=== PATIENT | female | born 1945 | race Caucasian/White ===

== ENCOUNTER → 2024-06-17 13:09 | Outpatient (BNVA) | payer MEDICARE, OTHER, SELFPAY | PROVIDERS: PCP Family Medicine; Referring Provider Family Medicine; Visit Provider Student in an Organized Health Care Education/Training Program | DX: M17.11 Unilateral primary osteoarthritis, right knee (principal); M17.12 Unilateral primary osteoarthritis, left knee | CPT/HCPCS: 99203 ==

== ENCOUNTER 2024-09-03 00:22 | Outpatient (CLI) | payer MEDICARE, OTHER, SELFPAY ==
[2024-09-03 11:51] LABS: HCT 45.8 % (36.0-46.0); HGB 15.2 g/dL (11.2-15.7); MCH 29.6 pg (27.0-33.0); MCHC 33.2 % (32.0-36.0); MCV 89 fL (80-95); MPV 10.3 fL (8.0-11.0); Platelet Count 315 10^3/uL (130-400); RBC 5.14 10^6/uL (3.93-5.22); RDW 12.2 % (11.7-14.6); WBC 9.52 10^3/uL (4.4-10.8)
[2024-09-03 12:27] LABS: Anion Gap 9.9 mmol/L (3-11); BUN 16 mg/dL (7-18); CO2 28.1 mmol/L (21.0-32.0); CREATININE 0.8 mg/dL (0.55-1.02); Calcium 9.4 mg/dL (8.5-10.1); Chloride 104 mmol/L (98-107); Estimated GFR 75.37 (mL/min/1.73m2); Glucose 116 mg/dL (74-106); Potassium 3.9 mmol/L (3.5-5.1); Sodium 142 mmol/L (136-145)
== END 2024-09-03 00:23 | disposition home or self-care (01) ==
LOC: LBO 00:23
PROVIDERS: PCP Family Medicine; Visit Provider Student in an Organized Health Care Education/Training Program
DX: M17.11 Unilateral primary osteoarthritis, right knee (principal); Z01.818 Encounter for other preprocedural examination
CPT/HCPCS: 36415; 80048; 85027

== ENCOUNTER 2024-09-03 12:28 | Outpatient (CLI) | payer MEDICARE, OTHER, SELFPAY ==
--- NOTE | 2024-09-03 10:36 | DI.RAD_ITS ---
Exam(s) XR STANDING ALIGNMENT XR KNEE RT 1V EXAM: XR STANDING ALIGNMENT CLINICAL HISTORY: PRE OP R TKA. TECHNIQUE: 2D digital imaging was performed. Standing AP views were performed from the pelvis throu gh the ankles. COMPARISON: CR XR KNEE 3V BILAT-M2 from 04/09/2024 CR XR KNEE RT 1V from 09/03/2024 FINDINGS: BONES: No acute fracture is present. No bony destructive lesion is seen. Leg length discrepancy: No significant overall leg length discrepancy. JOINTS: Knees: Severe degenerative changes of the medial femoral tibial joint spaces of both knees. The ankle joints are unremarkable. The hip joints are maintained. There is bilateral acetabular spurring. SOFT TISSUE: Normal. IMPRESSION: Severe degenerative changes of both knees.. No significant leg length discrepancy. DATA REPOSITORY: RADIATION DOSE DELIVERED:
== END 2024-09-03 12:29 | disposition home or self-care (01) ==
LOC: DIORS 12:28
PROVIDERS: PCP Family Medicine; Visit Provider Physician Assistant
DX: M17.11 Unilateral primary osteoarthritis, right knee (principal); Z01.818 Encounter for other preprocedural examination
CPT/HCPCS: 36415; 80048; 85027; 99214; 73560; 77073

== ENCOUNTER 2024-09-14 08:25 | Day surgery (SDC) | payer MEDICARE, OTHER, SELFPAY ==
[2024-09-14] VITALS (23 sets, daily range): BP systolic 102–181; BP diastolic 57–93; PULSE 67–86; RESP 12–22; TEMP 36.2–36.5; O2SAT 97–100; BMI 36.8
--- NOTE | 2024-09-14 07:29 | W.PM.DSUDISC ---
Date of service: 09/14/24 Discharge Plan Disposition Patient Disposition: Home Condition: Good Discharge Details Reason For Visit: Right knee DJD Attending Provider: Dom Toribio Primary Care Provider: Shmuel Dixon Home Meds and New Rx's Prescriptions: New celecoxib [Celebrex] 200 mg capsule 200 mg PO BID PRNQty: 60 0RF Rx Instructions: Take one tablet twice daily for pain and inflammation aspirin 81 mg tablet,delayed release (DR/EC) 81 mg PO BID 30 Days Qty: 60 0RF acetaminophen 500 mg tablet 1,000 mg PO Q8H PRN Qty: 90 0RF Rx Instructions: Take two tablets up to every 8 hours as needed for pain dexamethasone 4 mg tablet 4 mg PO DAILY Qty: 2 0RF Rx Instructions: Take one tablet once daily for two days docusate sodium [Colace] 100 mg capsule 100 mg PO BID Qty: 30 0RF gabapentin 300 mg capsule 300 mg PO QHS Qty: 14 0RF Rx Instructions: Take one tablet at bedtime oxycodone 5 mg tablet 5 mg PO Q4H PRNQty: 18 0RF Rx Instructions: Take one tablet up to every 4 hours as needed for severe postoperative pain Continued multivitamin Tablet 1 tab PO DAILY omega-3 fatty acids 1,000 mg capsule 1,000 mg PO DAILY pantoprazole 40 mg tablet,delayed release (DR/EC) 40 mg PO DAILY calcium-magnesium 300-300 mg tablet 1 tab PO DAILY Rx Instructions: administer with a meal cholecalciferol (vitamin D3) 125 mcg (5,000 unit) capsule 125 mcg PO DAILY Discharge Instructions Additional Instructions: Total Knee Discharge Instructions Activity: The most important activity is to walk and to work on gentle motion (both flexion and extension). You should try to take short walks a few times a day. It is important that when resting you work on keeping the knee straight. Avoid putting a pillow behind the knee as this will encourage flexion. Work on range of motion exercises as provided by Physical Therapy. - Start outpatient physical therapy within 2 weeks. - You should wear the HARIKA hose on both legs for 2 weeks. You may remove these at night. You may also use any compression sock in place of the HARIKA hose. - Utilize [employer] to review exercises, see videos on exercises and obtain basic information pertaining to your surgery and your recovery. Dressing: Remove the Fred wrap by 2 days after your surgery and put on the HARIKA stocking given to you from the hospital. Keep the surgical dressing (underneath the FRED wrap) in place for at least one week. After the first week it may be removed and replaced with light gauze and tape or nothing. The wound and dressing may get wet after 3 days but avoid soaking the dressing or otherwise it will need to be changed. Many people prefer covering the dressing with cling wrap (saran wrap) to minimize it from getting soaked. If it gets wet, just pat dry. If it starts to peel off then it will need to be changed. Medications: - You should take Tylenol and anti-inflammatory Celebrex as your primary pain control medications. If the Celebrex is too expensive or not covered, please call the office for another alternative (Advil/Ibuprofen or Naproxen/Aleve) - You have been prescribed a stronger pain medication Oxycodone for breakthrough pain, take as needed as prescribed. - You take a stomach acid reduction agent Pantoprozole at baseline - continue with this medication to help reduce stomach acid and reflux. - You have been prescribed Gabapentin to take at night for restlessness and nerve pain. - You will be taking Aspirin 81mg twice a day for DVT prevention unless instructed otherwise. - You have also been prescribed Decadron to take to control post-operative nausea and pain. You will start this tomorrow. - If you have constipation you should take Colace (which has been prescribed) or Miralax (which is available [id number]). It takes most people 3-4 days to have a bowel movement. Follow-up: 2 weeks If you have any acute concerns or questions, please do not hesitate to contact the office at [phone]. You may contact Dr. Toribio with any questions after hours through the hospital at [phone] or on his cell phone at [phone]. Referrals: Dom Toribio MD [ [facility] STAFF PHYSICIAN] - Equipment/Supplies: Walker Activity:: Elevate Remove Dressings/Wound Care:: Do Not Remove Shower/Bathe:: Cover Diet:: As Tolerated Discharge Orders Discharge Orders: Discharge Order (Routine); Ordered 09/14/24 Ordered By: Annetta Hernandez
--- NOTE | 2024-09-14 08:00 | W.ANESPRE ---
General Info Date of Service Date Performed: 09/14/24 Height: 4 ft 10 in Weight: 79.832 kg Body Mass Index (BMI): 36.8 Surgical Procedure: Operation Date: 09/14/24 10:10 Proposed Procedure Side Surgeon p Knee Total Arthroplasty Right Dom Toribio MD Meds Allergies and Home Medications Allergies Allergy/AdvReac Type Severity Reaction Status Date / Time No Known Allergies Allergy Verified 09/14/24 08:58 Home Medication ?Medication ?Instructions ?Recorded multivitamin 1 tab PO DAILY 04/14/24 omega-3 fatty acids 1,000 mg 1,000 mg PO DAILY 04/14/24 capsule calcium-magnesium 300 mg-300 mg 1 tab PO DAILY 09/03/24 tablet cholecalciferol (vitamin D3) 125 125 mcg PO DAILY 09/03/24 mcg (5,000 unit) capsule pantoprazole 40 mg tablet,delayed 40 mg PO DAILY 09/03/24 release acetaminophen 500 mg tablet 1,000 mg (2 x 500 mg) PO Q8H PRN 09/14/24 pain #90 tabs aspirin 81 mg tablet,delayed 81 mg PO BID 30 days #60 tabs 09/14/24 release celecoxib 200 mg capsule (Celebrex) 200 mg PO BID PRN #60 caps 09/14/24 dexamethasone 4 mg tablet 4 mg PO DAILY #2 tabs 09/14/24 docusate sodium 100 mg capsule 100 mg PO BID #30 caps 09/14/24 (Colace) gabapentin 300 mg capsule 300 mg PO QHS #14 caps 09/14/24 oxycodone 5 mg tablet 5 mg PO Q4H PRN #18 tabs 09/14/24 Current Visit Medications: Current Medications Generic Name Dose Route Start Last Admin Trade Name Freq PRN Reason Stop Dose Admin Acetaminophen 1,000 mg 09/14/24 06:00 Acetaminophen 500 Mg Tab PO 09/14/24 23:59 PREOP CLEMENTINA Acetaminophen 1,000 mg 09/14/24 08:30 Acetaminophen 500 Mg Tab PO 10/14/24 08:29 TID CLEMENTINA Celecoxib 400 mg 09/14/24 06:00 Celecoxib 200 Mg Cap PO 09/14/24 23:59 PREOP CLEMENTINA Gabapentin 300 mg 09/14/24 06:00 Gabapentin 300 Mg Cap PO 09/14/24 23:59 PREOP CLEMENTINA Hydromorphone HCl 0.5 mg 09/14/24 07:27 Hydromorphone 2 Mg/Ml Syr IVP 10/14/24 07:26 Q2H PRN PRN Ringer's Solution 1,000 mls @ 80 mls/hr 09/14/24 06:00 IV 09/14/24 23:59 INFUSION CLEMENTINA Cefazolin Sodium/Dextrose 2 gm in 50 mls @ 100 mls/hr 09/14/24 06:00 Ancef Duplex IVPB 09/14/24 23:59 PREOP CLEMENTINA Tranexamic Acid/Sodium Chloride 1,000 mg in 100 mls @ 600 mls/hr 09/14/24 06:00 IVPB 09/14/24 23:59 DIRECTED CLEMENTINA IV Miscellaneous Supplies 1 each 09/14/24 06:00 Iv Access IV 09/14/24 23:59 DIRECTED CLEMENTINA Oxycodone HCl 0 mg 09/14/24 07:27 Oxycodone 5 Mg Tab PO 10/14/24 07:26 Q3H PRN PRN Pain Sodium Chloride 0 ml 09/14/24 06:00 Normal Saline Flush 10 Ml Syr IV 09/14/24 23:59 PRN PRN Sodium Chloride 0 ml 09/14/24 06:00 Normal Saline 10 Ml Vial IJ 09/14/24 23:59 DIRECTED PRN Sterile Water 0 ml 09/14/24 06:00 Water,Injection,Sterile 10 Ml Vial IJ 09/14/24 23:59 DIRECTED PRN Tranexamic Acid 1,300 mg 09/14/24 07:27 Tranexamic Acid 650 Mg Tab PO 10/14/24 07:26 ONCE PRN postoperative PFSH Active Problems Active Problems: Problem Status Onset Code Degenerative joint disease of right knee Chronic M17.11 Osteoarthritis of knees, bilateral Acute M17.0 Villous adenoma of colon Acute D37.4 Hyperlipemia Acute E78.5 Glaucoma Chronic H40.9 Medical History Medical History (Updated 09/14/24 @ 08:18 by Tarah Zavaleta RN) Kidney stones History of gastric polyp History of colonic polyps Eczema Surgical History Surgical History (Updated 09/14/24 @ 08:18 by Tarah Zavaleta RN) History of surgical procedure on eye proper using laser left eye for glaucoma History of right hemicolectomy History of cataract surgery Bilateral History of carpal tunnel release Bilateral History of esophagogastroduodenoscopy (EGD) History of colonoscopy Tobacco Smoking/Tobacco Use Status: Former Tobacco Use Passive smoking exposure: Yes Alcohol Alcohol Intake: never Substance Use Substance use: Never Substance use type: does not use Vital Signs and Lab Results Vital Signs Most Recent Vital Signs in EMR: Temp Pulse Resp BP Pulse Ox 36.2 C L 80 16 163/64 H 100 09/14/24 09:04 09/14/24 09:04 09/14/24 09:04 09/14/24 09:04 09/14/24 09:04 Lab Results Blood Type / Crossmatch: No Data to Display Complete Blood Count: White Blood Count 9.52 10^3/uL (4.4-10.8) 09/03/24 11:43 Red Blood Count 5.14 10^6/uL (3.93-5.22) 09/03/24 11:43 Hemoglobin 15.2 g/dL (11.2-15.7) 09/03/24 11:43 Hematocrit 45.8 % (36.0-46.0) 09/03/24 11:43 Platelet Count 315 10^3/uL (130-400) 09/03/24 11:43 Complete Metabolic Panel: Sodium 142 mmol/L (136-145) 09/03/24 11:43 Potassium 3.9 mmol/L (3.5-5.1) 09/03/24 11:43 Chloride 104 mmol/L (98-107) 09/03/24 11:43 Carbon Dioxide 28.1 mmol/L (21.0-32.0) 09/03/24 11:43 BUN 16 mg/dL (7-18) 09/03/24 11:43 Creatinine 0.8 mg/dL (0.55-1.02) 09/03/24 11:43 Est GFR (CKD-EPI 2020) 75.37 (mL/min/1.73m2) 09/03/24 11:43 Calcium 9.4 mg/dL (8.5-10.1) 09/03/24 11:43 Glucose 116 mg/dL (74-106) H 09/03/24 11:43 Liver Function Panel: No Data to Display Coagulation Panel: No Data to Display Cardiac Panel: No Data to Display Arterial Blood Gas: No Data to Display Venous Blood Gas: No Data to Display Pancreas Panel: No Data to Display Thyroid Panel: No Data to Display Infectious Disease: No Data to Display Blood Cultures: No Data to Display Toxicology Panel: No Data to Display Anesthesia Assessment and Plan Anesthesia History Personal History: No History of Anesthesia Complications Family History: No Family History of Anesthesia Complications Exercise Tolerance Exercise Tolerance: Metabolic Equivalents>4 Cardiac & Pulmonary Exam Cardiac Exam: Normal S1/S2 Heart Sounds Pulmonary Exam: Clear Bilateral Breath Sounds Implantable Cardiac Device Does patient have a Pacemaker or an ICD?: No Airway Exam Known Difficult Airway: No Mallampati Class: 2 Mouth Opening: Normal (> 3cm) Thyromental Distance: Greater than 3 cm Facial Hair: Full Guzmán Neck Range of Motion: Full ROM Neck Circumference: Normal Teeth Condition: Normal Dentition ASA Classification ASA Score: ASA 2 Emergency Case?: No NPO Status NPO Status: NPO Clears >2 hours, Solids >8 hours Anesthesia Plan Resuscitation Status: Full Code Anesthesia Technique: Spinal Anesthesia Airway Planned: Natural Airway Monitors Used: Standard Monitors Preoperative Comments:: 79 yo female for TKA. Sig PMHx: GERD (well controlled), glaucoma, occ EtOH. Denies major health history issues.
[2024-09-14] MEDS: Celecoxib 200 MG CAP 400 MG PO (09:17)
[2024-09-14] MEDS: Acetaminophen 500 MG TAB 1000 MG PO (09:17)
[2024-09-14] MEDS: Gabapentin 300 MG CAP PO (09:17)
[2024-09-14] MEDS: Lactated Ringers 1,000 ML 80 ML IV (09:30)
--- NOTE | 2024-09-14 09:47 | ANES.NERVE_ITS ---
Nerve Block Single Injection Procedure Date and Time Date Performed: 09/14/24 Procedure Start: 09:38 Location Where Procedure Performed Procedure Location: Day Surgery Unit Reason Performed: Postoperative Analgesia Requesting Provider: Dom Toribio Timeout Performed Timeout Performed: Yes Monitoring Used ECG, Blood Pressure and SpO2 Sterility Sterility: Hand Hygiene, Surgical Cap, Surgical Mask, Sterile Gloves and Chlorhexidine Sedation Given During Procedure Sedation Given (Indicate Dose Given): No Sedation given Patient Mental Status Patient Mental Status: Awake Nerve Block 1st Nerve Block: Laterality: Right Block Type: Adductor Canal Ultrasound Image Saved?: Yes Needle / Catheter Used: 100mm SonoPlex II Local Anesthetic Bolus (Indicate Dose Given): Lidocaine used for local infiltration of skin, Bupivacaine 0.25% Dose:: 10 mL and Exparel Dose:: 5 mL Additives (Indicate Dose Given): None Ultrasound: Sterile probe cover and gel used Nerve Stimulator: Supplement to Ultrasound use and No twitch or parasthesia noted < 0.5 mA Paresthesia: None Procedure Tolerated: No Complications Procedure Outcome: Successful Performed By: Anish Mendez 2nd Nerve Block: Laterality: Right Block Type: Other (anterior femoral canal block) Ultrasound Image Saved?: Yes Needle / Catheter Used: 100mm SonoPlex II Local Anesthetic Bolus (Indicate Dose Given): Injected in 3-5ml increments after negative blood aspiration and Exparel Dose:: 4 mL Additives (Indicate Dose Given): None Ultrasound: Sterile probe cover and gel used Nerve Stimulator: Supplement to Ultrasound use and No twitch or parasthes ia noted < 0.5 mA Paresthesia: None Procedure Tolerated: No Complications Procedure Outcome: Successful Performed By: Anish Mendez
[2024-09-14] MEDS: ceFAZolin 2 GM/50 ML BAG IVPB (10:35)
[2024-09-14] MEDS: TRANEXAMIC ACID/SOD. CHL. 1,000 MG/100 ML BAG 600 MG IVPB (10:40)
--- NOTE | 2024-09-14 11:55 | ROE_ITS ---
Operative Note Operative Note PRE-OP DIAGNOSIS: Right Knee Osteoarthritis POST-OP DIAGNOSIS: same PROCEDURE: Right Total Knee Replacement SURGEON: Dom Toribio QUALITY CONTROL HEAD: Annetta Hernandez ANESTHESIA TYPE: Spinal Refer to Anesthesia Record ESTIMATED BLOOD LOSS: 100 PATHOLOGY: none sent TOURNIQUET TIME: 0 COMPLICATIONS: None Patient was transported to: PACU Patient's condition: stable Implants: 1. Depuy Attune Cementless Cruciate Retaining Femoral Component, Size 3 2. Depuy Attune Cementless Fixed Bearing Tibial Component, Size 3 3. Depuy Attune 3x10mm CR/FB Poly Indications: I have seen Yasmin in clinic for symptoms of knee arthritis, confirmed with radiographic findings. She has exhausted nonoperative methods and was having significant limitations in daily function and desired better function and less pain. I discussed the technical details of a knee replacement. I explained the risks of the procedure to include, but not limited to, bleeding, infection, pain, stiffness, fracture, damage to nerves and vessels, damage to muscles and tendons, loosening, need for repeat procedure, blood clot and cardiopulmonary demise. Despite these risks, Yasmin elected to proceed. Findings: There was significant signs of arthritis throughout the knee worse medially with large osteophytes about the medial compartment. There also was a large cyst which was evacuated with a significant redundant cystic tissue as well as detached meniscal root. Procedure Description: Yasmin was greeted in the preoperative holding area where the correct side was identified and marked. The consent was reviewed with the patient and signed. The history and physical was updated. All questions were answered. Preoperative medications were administered: Acetaminophen 1000mg, Celebrex 400mg, and Gabapentin 300mg. An adductor canal block was then administered by the anesthesia team in the DSU. She was taken back to the operating room. A spinal anesthestic was then administered. The patient was placed into the supine position on the operating room table. Posts were placed for positioning during the procedure. All bony prominences were well padded. Prophylactic antibiotics in the form of Cefazolin were administered. 1g of Tranxemic Acid was given intravenously within 30 minutes of incision. The right leg was then prepped with Chloraprep and draped in a standard fashion with impervious stockinette. A second prep with Chloraprep was performed prior to application of Iodine impregnated skin protection. A timeout to confirm correct identity, side and site, procedure, allergies, anesthesia, and medical concerns was performed. With the knee in some flexion, a midline incision was made overlying the knee. Full thickness skin flaps were raised once the extensor mechanism was encountered. These were raised medially and laterally. Any bleeding was controlled with electrocautery. Once the extensor mechanism was fully exposed, a medial parapatellar arthrotomy was performed in a flexed position. All bleeding from the arthrotomy and the geniculate arteries was coagulated. A medial subperiosteal peel was performed with electrocautery to the midcoronal plane. Due to the significant varus deformity the entire medial tibial plateau was exposed. The fat pad was removed while keeping the patellar tendon protected. The anterior distal femur synovium was removed for later visualization. The ACL and PCL were resected and the anterior horn of the lateral meniscus was transected. The knee was then flexed with the patella everted. Large osteophytes from the tibia were removed. Large osteophytes from the femur were removed. There was a large cyst which was evacuated, originate from the posterior medial soft tissues. This was milked posteriorly with the cystic structure visible and completely decompressed. Using a step drill, and based on preoperative templating, the femoral canal was entered. This was done with a step drill without any difficulty. The intramedullary distal femoral cut guide was inserted, set to a 5 degree valgus cut and 9mm cut thickness. The distal femoral cut guide was then held in position and pinned. With the soft tissues protected, the distal cut was perf ormed. This was passed over a few times to ensure a planar cut. I then turned attention to the tibia. The extramedullary guide was placed onto the leg. The distal aspect was slid medial to adjust for position of center of ankle and stay in line with shaft of the tibia. Approximately 3-5 degrees of posterior slope was kept in the proximal cutting guide. The center of the guide was aligned with the PCL. The stylus was used to assess cut thickness. The medial side, most involved side, was set for a 4mm cut. This was then held in position and pinned into place with 2 additional pins and a cross pin for stability. The medial and lateral collateral ligaments were protected and the cut was performed. With this completed, it was assessed and noted to be of appropriate dimensions. The guide was removed. A spacer block was inserted and the knee was brought into extension. The 8mm spacer block provided full extension, without hyperextension and with stability of both the medial and lateral collateral ligaments was assessed. The pins from the femur and the tibia were then removed. The distal femur was then sized. The anterior stylus was placed onto the lateral ridge of the anterior femur. This indicated a size 3 femur. The external rotation of the guide was adjusted to 3 degrees to match the epicondylar axis, perpendicular to Angwin?s line. The 4-in-1 cutting guide was the placed. The posterior medial femur cut was evaluated and appeared of good thickness. The spacer block was inserted underneath the cutting guide and stability was confirmed in 90 degrees of flexion. An omid wing was used to confirm appropriate position of the anterior cut to avoid notching. This cutting guide was ensured to be flush on the cut surface and then pinned into place with headed pins. While protecting the soft tissues, quad tendon, and collateral ligaments, the anterior and posterior cuts were performed with a saw. The central two pins were removed and the posterior and anterior chamfers were cut next. The notch-cutting guide was placed. This was pinned to lateralize the femoral component as much as possible while keeping it flush on the cut surface. This was then pinned into position. A reciprocating saw was used to make the notch cut. A rasp smoothed the cut surfaces. The medial and lateral menisci were removed. A trial femoral component was then inserted, impacted down to the cut surfaces, and the lug holes were drilled. A provisional trial tibial component was placed and the knee was brought through range of motion. The polyethylene was trialed until there was good flexion and extension with excellent stability to the medial and lateral collaterals. The patella was tracking without thumbs. A size 10mm polyethylene component provided the best range of motion and stability with less than 2mm gapping with medial and lateral stress and full extension without significant hyperextension. The tibial cut surface was fully exposed. The tibia was then sized as a 3. The tibia had been previously marked during trialing to correspond to the center of the tibial component to help with rotation. The trial was aligned to this nereyda, approximately rotated to the medial 1/3rd of the tibial tubercle. The trial was pinned into place. The tibia was prepared with a reamer and a keel punch and lug holes. The trial components were removed. The final components were opened on the back table. The periosteal and capsular tissues, especially posteriorly, around the knee were then systematically injected with a periarticular cocktail consisting of 246mg of Ropivacaine, 0.5mg of Epinephrine, 0.08mg of Clonidine, and 30mg of Ketorolac, diluted to 100cc. Starting with the tibial component, the tibia was subluxed anteriorly and the lug holes of the component were lined up. The tibia was then impacted with an impactor and mallet until the tibial component was in contact with the tibia. Then, the femoral component was inserted. The lug holes were aligned and the component was impacted into position. The final polyethylene component was inserted. The knee was irrigated with Surgiphor Betadine solution. This was allowed to sit in the knee for 3 minutes and then it was irrigated out with saline. The patella was tracking with a no-thumbs technique. The periphery of the patella was cauterized with electrocautery removing any synovium and synovitis. The lateral aspect of the lateral facet was resected. The capsule was then reapproximated with a No. 1 Vicryl at multiple locations. The capsule was finally closed with a No. 2 Stratafix, barbed suture. The second dosing of 1g TXA was started. Deep tissues were then reapproximated with 0 Vicryl and 2-0 Vicryl. The skin was closed with a running 3-0 Monocryl in a subcuticular fashion. This was reinforced with skin glue. A Mepilex silver dressing was applied along with a mhvg-ld-pyada CONSTANTINO wrap. A CryoCuff was applied. NAME was transferred to the hospital bed without difficulty an suffering no apparent complication. Yasmin has a good prognosis. Physical therapy will start today and without restrictions, weight-bearing as tolerated. Aspirin 81mg BID will be used for DVT prophylaxis. Date of Procedure: 09/14/24
--- NOTE | 2024-09-14 13:20 | W.ANESPOSTOP ---
Postoperative Evaluation Date, Time and Location Date Performed: 09/14/24 Time Performed: 13:20 Patient Location: PACU Vital Signs Most Recent Imported Vital Signs: Most Recent Vital Signs Temp Pulse Resp BP Pulse Ox 36.2 C L 83 15 152/66 H 97 09/14/24 12:55 09/14/24 12:55 09/14/24 12:55 09/14/24 12:55 09/14/24 12:55 Pain Score Most Recent Pain Score: Most Recent Pain Score Pain Level 2 09/14/24 12:55 Assessment Mental Status: Awake (Alert & Oriented to Patient Baseline) Airway and Respiratory Function: Patent airway with normal (patient baseline) respiratory exam Cardiovascular Function: Hemodynamically Stable Hydration Status: Adequately Hydrated Nausea & Vomiting: No Nausea or Vomiting Pain: Pain is tolerable per patient Peripheral Nerve Block: Regional nerve block not resolved at time of post operative discharge
--- NOTE | 2024-09-14 16:01 | IN_ITS ---
PT Notes Visit Reasons: Right knee DJD Physical Therapy Day Surgery Initial Evaluation Date: 09/14/2024 Referring Doctor: Annetta Hernandez PT Orders: PT CONSULT: s/p Ortho surgery Precautions:WBAT RLE TEDs x 2 weeks Patient Profile/Admitting Diagnosis: Pt is a 79 yo female presenting s/p R TKA d/t DJD under spinal anesthesia by Dr Toribio on 09/14/2024. post op uncomplicated PMHX: Kidney stones History of gastric polyp History of colonic polyps Eczema Surgical History (Updated 09/03/24 @ 10:53 by Annetta Hernandez) History of surgical procedure on eye proper using laser left eye for glaucoma History of right hemicolectomy History of cataract surgery Bilateral History of carpal tunnel release Bilateral History of esophagogastroduodenoscopy (EGD) History of colonoscopy Social History/Home Situation: Pt resides in mobile home with ramp to enter. Pt independent with ADL, cooking, and ambulation. Her drives. Equipment Owned/DME: [employer] Subjective: Pt reports she has a step stool to get into her bed because it is high. She reports she has to make her outpatient PT appointment as she forgot to schedule it before her surgery. Objective: General Observation: female semireclined on stretcher with cryocuff to Right knee, IV Fluids infusing RUE Mental Status: A +O x4, able to follow instructions, agreeable to participate Pain: 2/10 stiffness and heavy ROM: [] Right Upper Extremity: WNL Left Upper Extremity: WNL Right Lower Extremity: WFL knee 0-91 degrees limited by angel wrap/dressing Left Lower Extremity: WNL Strength: BUE: 5/5 Right Lower Extremity: Hip flexion: 3- /5; hip abduction: 3- /5; hip extension:3- /5; knee extension: 3/5; knee flexion: 2+ /5 ankle DF: 3 /5 ; ankle PF: 3 /5, strong quad set and SLR without lag Left Lower Extremity: 5/5 Sensation: intact Bed Mobility/Transfers: Supine to sit supervision Sit to stand supervision Stand to sit supervision Bed to chairsupervision with FWW Gait: amb 150 with FWW supervision reciprocal pattern cues to take slightly shorter stride as pt taking exaggerated long step. stairs: 5 steps with B rails step to pattern CGA Balance: [] Static Sitting: normal Dynamic Sitting: good Static Standing: good Dynamic Standing: fair + Special Tests: [] Mobility Limitations Standardized Measure [] [facility] AM-PAC 6 clicks Basic Mobility Inpatient Short Form: [] Raw Score: 22 CMS Score: 20.91% Informed Consent/Education: Patient instructed in purpose of PT consult. treatment 56250: Packet containing TKA exercise protocol has been given to patient. Education and training on initial set of exercises that can be done at home have been completed with patient. Pt educated also on positioning of pillow to elevate RLE to promote knee extension. Assessment: Patient presents with clinical signs and symptoms consistent with current/admi tting diagnoses that have resulted to mobility limitations, gait instability, generalized weakness, and impairment of motor control as demonstrated by the following impairment level findings: 1. Decreased strength to right knee major muscle groups 2. Impaired standing balance 3. Limitation of joint range of motion in right knee Impairments are contributing to the following functional limitations: 1. Inability to safely ambulate without assistive device 2. Increase completion time for mobility ADL performance 3. Increased fall risk Patient is assessed as a moderate complexity based on the following: History: 79-year-old female with impairment level findings, functional limitations, and past medical history as indicated above Examination: Demonstrable impairment in strength, balance, and mobility level with underlying impairments and functional limitations as documented above Presentation: evolving Decision Making: moderate Goals: N/A. Plan of Care/Treatment Plan: N/A. DISCHARGE RECOMMENDATIONS: Home with outpatient PT TREATMENT CODE/TIME: 42863, 56333/ 1:40pm-2:13pm Thank you for the opportunity to participate in the care of this patient. Elvia Bingham PT [facility]
== END 2024-09-14 15:05 | disposition home or self-care (01) ==
PROVIDERS: PCP Family Medicine; Visit Provider Student in an Organized Health Care Education/Training Program
PROC: (CPT 27447; principal; 2024-09-14 10:00)
DX: M17.11 Unilateral primary osteoarthritis, right knee (principal); M25.561 Pain in right knee; G89.18 Other acute postprocedural pain; E78.5 Hyperlipidemia, unspecified
CPT/HCPCS: 27447; 64447; 64450; 97110; 97162; C1776; J0665; J0666; J0690; J1100; J2401; J2405; J2704

== ENCOUNTER 2024-09-27 14:48 | Outpatient (CLI) | payer MEDICARE, OTHER, SELFPAY ==
--- NOTE | 2024-09-27 10:45 | DI.RAD_ITS ---
Exam(s) XR KNEE RT 1V XR STANDING ALIGNMENT EXAM: XR STANDING ALIGNMENT CLINICAL HISTORY: 1ST POST OP S/P R TKA. TECHNIQUE: 2D digital imaging was performed. Standing AP views were performed from the pelvis throu gh the ankles. COMPARISON: CR XR STANDING ALIGNMENT from 09/03/2024 CR XR KNEE RT 1V from 09/03/2024 CR XR KNEE RT 1V from 09/27/2024 FINDINGS: BONES: No acute fracture is present. No bony destructive lesion is seen. There are mild degenerative changes of the SI joints. Leg length discrepancy: No significant overall leg length discrepancy. JOINTS: Knees: Status post placement of right total knee prosthesis since the previous exam. The ali gnment is satisfactory. Other severe narrowing of the medial femoral tibial joint space of the left knee with mild varus angulation. The ankle joints are unremarkable. The hip joints show preserved joint spaces. There is acetabular spurring spurring from the femoral heads, greater on the right. SOFT TISSUE: Right lower extremity edema. IMPRESSION: Status post placement of a right knee prosthesis show satisfactory alignment. Severe degenerative ch anges of the medial femoral tibial joint space of the left knee.. No significant leg length discrepancy. DATA REPOSITORY: RADIATION DOSE DELIVERED:
== END 2024-09-27 14:49 | disposition home or self-care (01) ==
LOC: DIORS 14:49
PROVIDERS: PCP Family Medicine; Referring Provider Family Medicine; Visit Provider Student in an Organized Health Care Education/Training Program
DX: Z96.651 Presence of right artificial knee joint (principal); Z47.1 Aftercare following joint replacement surgery
CPT/HCPCS: 99024; 73560; 77073

== ENCOUNTER → 2024-10-28 08:09 | Outpatient (BNVA) | payer MEDICARE, OTHER, SELFPAY | PROVIDERS: PCP Family Medicine; Referring Provider Family Medicine; Visit Provider Student in an Organized Health Care Education/Training Program | DX: Z47.1 Aftercare following joint replacement surgery (principal); Z96.651 Presence of right artificial knee joint | CPT/HCPCS: 99024 ==

== ENCOUNTER → 2024-12-06 08:58 | Outpatient (BNVA) | payer MEDICARE, OTHER, SELFPAY | PROVIDERS: PCP Family Medicine; Referring Provider Family Medicine; Visit Provider Student in an Organized Health Care Education/Training Program | DX: Z47.1 Aftercare following joint replacement surgery (principal); Z96.651 Presence of right artificial knee joint; M25.562 Pain in left knee | CPT/HCPCS: 99213 ==

== ENCOUNTER 2025-03-22 07:09 | Day surgery (SDC) | payer MEDICARE, OTHER, SELFPAY ==
[2025-03-22] VITALS (19 sets, daily range): BP systolic 101–151; BP diastolic 36–78; PULSE 74–89; RESP 14–27; TEMP 36.3–36.6; O2SAT 89–100; BMI 38.0
--- NOTE | 2025-03-22 07:07 | PDOC.DSDIS_ITS ---
Date of service: 03/22/25 Discharge Plan Disposition Patient Disposition: Home Condition: Good Discharge Details Reason For Visit: Left knee DJD Attending Provider: Dom Toribio Primary Care Provider: Shmuel Dixon Home Meds and New Rx's Prescriptions: New celecoxib [Celebrex] 200 mg capsule 200 mg PO BID PRNQty: 60 0RF Rx Instructions: Take one tablet twice daily for pain and inflammation aspirin 81 mg tablet,delayed release (DR/EC) 81 mg PO BID 30 Days Qty: 60 0RF acetaminophen 500 mg tablet 1,000 mg PO Q8H PRN Qty: 90 0RF Rx Instructions: Take two tablets up to every 8 hours as needed for pain dexamethasone 4 mg tablet 4 mg PO DAILY Qty: 2 0RF Rx Instructions: Take one tablet once daily for two days docusate sodium [Colace] 100 mg capsule 100 mg PO BID Qty: 28 0RF gabapentin 300 mg capsule 300 mg PO QHS Qty: 14 0RF Rx Instructions: Take one tablet at bedtime Continued multivitamin Tablet 1 tab PO DAILY omega-3 fatty acids 1,000 mg capsule 1,000 mg PO DAILY calcium-magnesium 300-300 mg tablet 1 tab PO DAILY Rx Instructions: administer with a meal cholecalciferol (vitamin D3) 125 mcg (5,000 unit) capsule 125 mcg PO DAILY omeprazole 40 mg capsule,delayed release(DR/EC) 40 mg PO DAILY Discontinued acetaminophen 500 mg tablet 1,000 mg PO Q8H PRN Qty: 90 0RF Rx Instructions: Take two tablets up to every 8 hours as needed for pain Discharge Instructions Additional Instructions: Total Knee Discharge Instructions Activity: The most important activity is to walk and to work on gentle motion (both flexion and extension). You should try to take short walks a few times a day. It is important that when resting you work on keeping the knee straight. Avoid putting a pillow behind the knee as this will encourage flexion. Work on range of motion exercises as provided by Physical Therapy. - Start outpatient physical therapy within 2 weeks. - You should wear the HARIKA hose on both legs for 2 weeks. You may remove these at night. You may also use any compression sock in place of the HARIKA hose. - Utilize [employer] to review exercises, see videos on exercises and obtain basic information pertaining to your surgery and your recovery. Dressing: Remove the Fred wrap by 2 days after your surgery and put on the HARIKA stocking given to you from the hospital. Keep the surgical dressing (underneath the FRED wrap) in place for at least one week. After the first week it may be removed and replaced with light gauze and tape or nothing. The wound and dressing may get wet after 3 days but avoid soaking the dressing or otherwise it will need to be changed. Many people prefer covering the dressing with cling wrap (saran wrap) to minimize it from getting soaked. If it gets wet, just pat dry. If it starts to peel off then it will need to be changed. Medications: - You should take Tylenol and anti-inflammatory Celebrex as your primary pain control medications. If the Celebrex is too expensive or not covered, please call the office for another alternative (Advil/Ibuprofen or Naproxen/Aleve) - You stated you had enough Oxycodone left over from your right TKA - this is a stronger pain medication to take as needed for breakthrough pain. - You take a stomach acid reduction agent Omeprazole at baseline - continue with this medication to help reduce stomach acid and reflux. - You have been prescribed Gabapentin to take at night for restlessness and nerve pain. - You will be taking Aspirin 81mg twice a day for DVT prevention unless instructed otherwise. - You have also been prescribed Decadron to take to control post-operative nausea and pain. You will start this tomorrow. - If you have constipation you should take Colace (which has been prescribed) or Miralax (which is available [id number]). It takes most people 3-4 days to have a bowel movement. Follow-up: 2 weeks If you have any acute concerns or questions, please do not hesitate to contact the office at [phone]. You may contact Dr. Toribio with any questions after hours through the hospital at [phone] or on his cell phone at [phone]. Referrals: Dom Toribio MD [ [facility] STAFF PHYSICIAN, Orthopaedic Surgical] Equipment/Supplies: Walker Activity:: Elevate Remove Dressings/Wound Care:: Do Not Remove Shower/Bathe:: Cover Diet:: As Tolerated Discharge Orders Discharge Orders: Discharge Order (Routine); Ordered 03/22/25 Ordered By: Annetta Hernandez
[2025-03-22] MEDS: Gabapentin 300 MG CAP PO (07:51)
[2025-03-22] MEDS: Celecoxib 200 MG CAP 400 MG PO (07:51)
[2025-03-22] MEDS: Acetaminophen 500 MG TAB 1000 MG PO (07:51)
[2025-03-22] MEDS: Lactated Ringers 1,000 ML 80 ML IV (08:28)
--- NOTE | 2025-03-22 08:57 | W.ANESPRE ---
General Info Date of Service Date Performed: 03/22/25 Height: 4 ft 10 in Weight: 82.7 kg Body Mass Index (BMI): 38.0 Surgical Procedure: Operation Date: 03/22/25 09:40 Proposed Procedure Side Surgeon p Knee Total Arthroplasty, Cementless Size 3 Left Dom Toribio MD Meds Allergies and Home Medications Allergies Allergy/AdvReac Type Severity Reaction Status Date / Time No Known Allergies Allergy Verified 03/22/25 07:39 Home Medication ?Medication ?Instructions ?Recorded multivitamin 1 tab PO DAILY 04/14/24 omega-3 fatty acids 1,000 mg 1,000 mg PO DAILY 04/14/24 capsule calcium-magnesium 300 mg-300 mg 1 tab PO DAILY 09/03/24 tablet cholecalciferol (vitamin D3) 125 125 mcg PO DAILY 09/03/24 mcg (5,000 unit) capsule omeprazole 40 mg capsule,delayed 40 mg PO DAILY 12/06/24 release acetaminophen 500 mg tablet 1,000 mg (2 x 500 mg) PO Q8H PRN 03/22/25 pain #90 tabs aspirin 81 mg tablet,delayed 81 mg PO BID 30 days #60 tabs 03/22/25 release celecoxib 200 mg capsule (Celebrex) 200 mg PO BID PRN #60 caps 03/22/25 dexamethasone 4 mg tablet 4 mg PO DAILY #2 tabs 03/22/25 docusate sodium 100 mg capsule 100 mg PO BID #28 caps 03/22/25 (Colace) gabapentin 300 mg capsule 300 mg PO QHS #14 caps 03/22/25 Current Visit Medications: Current Medications Generic Name Dose Route Start Last Admin Trade Name Dontae PRN Reason Stop Dose Admin Acetaminophen 1,000 mg 03/22/25 06:00 03/22/25 07:51 Acetaminophen 500 Mg Tab PO 04/20/25 23:59 1,000 mg PREOP CLEMENTINA Administration Celecoxib 400 mg 03/22/25 06:00 03/22/25 07:51 Celecoxib 200 Mg Cap PO 04/20/25 23:59 400 mg PREOP CLEMENTINA Administration Gabapentin 300 mg 03/22/25 06:00 03/22/25 07:51 Gabapentin 300 Mg Cap PO 04/20/25 23:59 300 mg PREOP CLEMENTINA Administration Hydromorphone HCl 0.5 mg 03/22/25 07:06 Hydromorphone 2 Mg/Ml Syr IVP 04/21/25 07:05 Q2H PRN PRN Ringer's Solution 1,000 mls @ 80 mls/hr 03/22/25 06:00 03/22/25 08:28 IV 04/20/25 23:59 80 mls/hr INFUSION CLEMENTINA Administration Cefazolin Sodium/Dextrose 2 gm in 50 mls @ 100 mls/hr 03/22/25 06:00 Ancef Duplex IVPB 04/20/25 23:59 PREOP CLEMENTINA Tranexamic Acid/Sodium Chloride 1,000 mg in 100 mls @ 600 mls/hr 03/22/25 06:00 IVPB 04/20/25 23:59 PREOP CLEMENTINA Cefazolin Sodium/Dextrose 1 gm in 50 mls @ 100 mls/hr 03/22/25 08:00 Ancef Duplex IVPB 03/23/25 00:29 Q8H CLEMENTINA IV Miscellaneous Supplies 1 each 03/22/25 06:00 Iv Access IV 04/20/25 23:59 DIRECTED CLEMENTINA Oxycodone HCl 0 mg 03/22/25 07:06 Oxycodone 5 Mg Tab PO 04/21/25 07:05 Q3H PRN PRN Pain Sodium Chloride 0 ml 03/22/25 06:00 Normal Saline Flush 10 Ml Syr IV 04/20/25 23:59 PRN PRN Sodium Chloride 0 ml 03/22/25 06:00 Normal Saline 10 Ml Vial IJ 04/20/25 23:59 DIRECTED PRN Sterile Water 0 ml 03/22/25 06:00 Water,Injection,Sterile 10 Ml Vial IJ 04/20/25 23:59 DIRECTED PRN Tranexamic Acid 1,300 mg 03/22/25 07:06 Tranexamic Acid 650 Mg Tab PO 04/21/25 07:05 ONCE PRN postoperative PFSH Active Problems Active Problems: Problem Status Onset Code Left knee DJD Chronic M17.12 History of total right knee replacement Acute 09/14/24 Z96.651 Villous adenoma of colon Acute D37.4 Hyperlipemia Acute E78.5 Glaucoma Chronic H40.9 Medical History Medical History Kidney stones History of gastric polyp History of colonic polyps Eczema Surgical History Surgical History History of surgical procedure on eye proper using laser left eye for glaucoma History of right hemicolectomy History of cataract surgery Bilateral History of carpal tunnel release Bilateral History of esophagogastroduodenoscopy (EGD) History of colonoscopy Tobacco Smoking/Tobacco Use Status: Former Tobacco Use Passive smoking exposure: Yes ( does smoke inside at times) Alcohol Alcohol Intake: never Substance Use Substance use: Never Substance use type: does not use Vital Signs and Lab Results Vital Signs Most Recent Vital Signs in EMR: Most Recent Vital Signs Temp Pulse Resp BP Pulse Ox 36.3 C L 74 19 107/36 L 97 03/22/25 08:29 03/22/25 08:29 03/22/25 08:29 03/22/25 08:29 03/22/25 08:29 Anesthesia Assessment and Plan Anesthesia History Personal History: No History of Anesthesia Complications Family History: No Family History of Anesthesia Complications Exercise Tolerance Exercise Tolerance: Metabolic Equivalents>4 Cardiac & Pulmonary Exam Cardiac Exam: Normal S1/S2 Heart Sounds Pulmonary Exam: Clear Bilateral Breath Sounds Implantable Cardiac Device Does patient have a Pacemaker or an ICD?: No Airway Exam Known Difficult Airway: No Mallampati Class: 2 Mouth Opening: Normal (> 3cm) Thyromental Distance: Greater than 3 cm Facial Hair: Full Guzmán Neck Range of Motion: Full ROM Neck Circumference: Normal Teeth Condition: Normal Dentition ASA Classification ASA Score: ASA 2 Emergency Case?: No NPO Status NPO Status: NPO Clears >2 hours, Solids >8 hours Anesthesia Plan Resuscitation Status: Full Code Anesthesia Technique: Spinal Anesthesia Airway Planned: Natural Airway Monitors Used: Standard Monitors Preoperative Comments:: 79 yo female for second TKA. Sig PMHx: GERD (well controlled), glaucoma, occ EtOH. Denies major health history issues.
--- NOTE | 2025-03-22 08:58 | W.ANESNERVE ---
Nerve Block Single Injection Procedure Date and Time Date Performed: 03/22/25 Procedure Start: 08:43 Location Where Procedure Performed Procedure Location: Day Surgery Unit Reason Performed: Postoperative Analgesia Requesting Provider: Dom Toribio Timeout Performed Timeout Performed: Yes Monitoring Used ECG, Blood Pressure and SpO2 Sterility Sterility: Hand Hygiene, Surgical Cap, Surgical Mask, Sterile Gloves and Chlorhexidine Sedation Given During Procedure Sedation Given (Indicate Dose Given): No Sedation given Patient Mental Status Patient Mental Status: Awake Nerve Block 1st Nerve Block: Laterality: Left Block Type: Adductor Canal Ultrasound Image Saved?: Yes Needle / Catheter Used: 100mm SonoPlex II Local Anesthetic Bolus (Indicate Dose Given): Injected in 3-5ml increments after negative blood aspiration, Bupivacaine 0.25% Dose:: 10 ml and Exparel Dose:: 10 ml Additives (Indicate Dose Given): None Ultrasound: Sterile probe cover and gel used Nerve Stimulator: Supplement to Ultrasound use and No twitch or parasthesia noted < 0.5 mA Paresthesia: None Procedure Tolerated: No Complications and Patient tolerated well Procedure Outcome: Successful Performed By: Carlos Pretty 2nd Nerve Block: Laterality: Left Block Type: Other (Anterior Femoral Cutaneous nerve block) Ultrasound Image Saved?: Yes Needle / Catheter Used: 100mm SonoPlex II Local Anesthetic Bolus (Indicate Dose Given): Injected in 3-5ml increments after negative blood aspiration and Bupivacaine 0.25% Dose:: 5 ml Additives (Indicate Dose Given): None Ultrasound: Sterile probe cover and gel used Nerve Stimulator: Supplement to Ultrasound use and No twitch or parasthesia noted < 0.5 mA Paresthesia: None Procedure Tolerated: No Complications and Patient tolerated well Procedure Outcome: Successful Performed By: Carlos Pretty
--- NOTE | 2025-03-22 09:04 | ROE_ITS ---
Operative Note Operative Note PRE-OP DIAGNOSIS: Left Knee Osteoarthritis POST-OP DIAGNOSIS: same PROCEDURE: Left Total Knee Replacement SURGEON: Dom Toribio DIE REPAIRER TRIMMER DIES: Annetta Hernandez ANESTHESIA TYPE: Spinal Refer to Anesthesia Record ESTIMATED BLOOD LOSS: 100 PATHOLOGY: none sent TOURNIQUET TIME: 0 COMPLICATIONS: None Patient was transported to: PACU Patient's condition: stable Implants: 1. Depuy Attune Cementless Cruciate Retaining Femoral Component, Size 4 Narrow 2. Depuy Attune Cementless Fixed Bearing Tibial Component, Size 3 3. Depuy Attune 4x8mm CR/FB Poly Indications: I have seen Yasmin in clinic for symptoms of knee arthritis, confirmed with radiographic findings. She has exhausted nonoperative methods and was having significant limitations in daily function and desired better function and less pain. She had excellent result on the right side earlier this year. I once again reviewed the technical details of a knee replacement. I explained the risks of the procedure to include, but not limited to, bleeding, infection, pain, stiffness, fracture, damage to nerves and vessels, damage to muscles and tendons, loosening, need for repeat procedure, blood clot and cardiopulmonary demise. Despite these risks, Yasmin elected to proceed. Findings: There was significant signs of arthritis throughout the knee, mostly concentrated to the medial side but there is large osteophytes present around the medial tibia and femur. Procedure Description: Yasmin was greeted in the preoperative holding area where the correct side was identified and marked. The consent was reviewed with the patient and signed. The history and physical was updated. All questions were answered. Preoperative medications were administered: Acetaminophen 1000mg, Celebrex 400mg, and Gabapentin 300mg. An adductor canal block was then administered by the anesthesia team in the DSU. She was taken back to the operating room. A spinal anesthestic was then administered. The patient was placed into the supine position on the operating room table. Posts were placed for positioning during the procedure. All bony prominences were well padded. Prophylactic antibiotics in the form of Cefazolin were administered. 1g of Tranxemic Acid was given intravenously within 30 minutes of incision. The left leg was then prepped with Chloraprep and draped in a standard fashion with impervious stockinette. A second prep with Chloraprep was performed prior to application of Iodine impregnated skin protection. A timeout to confirm correct identity, side and site, procedure, allergies, anesthesia, and medical concerns was performed. With the knee in some flexion, a midline incision was made overlying the knee. Full thickness skin flaps were raised once the extensor mechanism was encountered. These were raised medially and laterally. Any bleeding was controlled with electrocautery. Once the extensor mechanism was fully exposed, a medial parapatellar arthrotomy was performed in a flexed position. All bleeding from the arthrotomy and the geniculate arteries was coagulated. A medial subperiosteal peel was performed with electrocautery to the midcoronal plane. Due to the significant varus deformity the entire medial tibial plateau was exposed. The fat pad was removed while keeping the patellar tendon protected. The anterior distal femur synovium was removed for later visualization. The ACL and PCL were resected and the anterior horn of the lateral meniscus was transected. The knee was then flexed with the patella everted. Large osteophytes from the tibia were removed. Large osteophytes from the femur were removed. Using a step drill, and based on preoperative templating, the femoral canal was entered. This was done with a step drill without any difficulty. The intramedullary distal femoral cut guide was inserted, set to a 5 degree valgus cut and 9mm cut thickness. The distal femoral cut guide was then held in position and pinned. With the soft tissues protected, the distal cut was performed. This was passed over a few times to ensure a planar cut. I then turned attention to the tibia. The extramedullary guide was placed onto the leg. The distal aspect was slid medial to adjust for position of center of ankle and stay in line with shaft of the tibia. Approximately 5 degrees of posterior slope was kept in the proximal cutting guide. The center of the guide was aligned with the PCL. The stylus was used to assess cut thickness. The medial side, most involved side, was set for a 4mm cut. This was then held in position and pinned into place with 2 additional pins and a cross pin for stability. The medial and lateral collateral ligaments were protected and the cut was performed. With this completed, it was assessed and noted to be of appropriate dimensions. The guide was removed. A spacer block was inserted and the knee was brought into extension. The 7mm spacer block provided full extension, without hyperextension and with stability of both the medial and lateral collateral ligaments was assessed. The pins from the femur and the tibia were then removed. The distal femur was then sized. The anterior stylus was placed onto the lateral ridge of the anterior femur. This indicated a size 4 narrow femur. The external rotation of the guide was adjusted to 3 degrees to match the epicondylar axis, perpendicular to [place]?s line. The 4-in-1 cutting guide was the placed. The posterior medial femur cut was evaluated and appeared of good thickness. The spacer block was inserted underneath the cutting guide and stability was confirmed in 90 degrees of flexion. An omid wing was used to confirm appropriate position of the anterior cut to avoid notching. This cutting guide was ensured to be flush on the cut surface and then pinned into place with headed pins. While protecting the soft tissues, quad tendon, and collateral ligaments, the anterior and posterior cuts were performed with a saw. The central two pins were removed and the posterior and anterior chamfers were cut next. The notch-cutting guide was placed. This was pinned to lateralize the femoral component as much as possible while keeping it flush on the cut surface. This was then pinned into position. A reciprocating saw was used to make the notch cut. A rasp smoothed the cut surfaces. The medial and lateral menisci were removed. A trial femoral component was then inserted, impacted down to the cut surfaces, and the lug holes were drilled. A provisional trial tibial component was placed and the knee was brought through range of motion. The polyethylene was trialed until there was good flexion and extension with excellent stability to the medial and lateral collaterals. The patella was tracking without thumbs. A size 8mmmm polyethylene component provided the best range of motion and stability with less than 2mm gapping with medial and lateral stress and full extension without significant hyperextension. The tibial cut surface was fully exposed. The tibia was then sized as a 3. The tibia had been previously marked during trialing to correspond to the center of the tibial component to help with rotation. The trial was aligned to this nereyda, approximately rotated to the medial 1/3rd of the tibial tubercle. The trial was pinned into place. The tibia was prepared with a reamer and a keel punch and lug holes. The trial components were removed. The final components were opened on the back table. The periosteal and capsular tissues, especially posteriorly, around the knee were then systematically injected with a periarticular cocktail consisting of 246mg of Ropivacaine, 0.5mg of Epinephrine, 0.08mg of Clonidine, and 30mg of Ketorolac, diluted to 100cc. On the back table, with the implants opened. The cementless knee components were placed. Starting with the tibial component, the tibia was subluxed anteriorly and the lug holes of the component were lined up. The tibia was then impacted with an impactor and mallet until the tibial component was in contact with the tibia. Then, the femoral component was inserted. The lug holes were aligned and the component was impacted into position. The final polyethylene component was inserted. The knee was irrigated with Surgiphor Betadine solution. This was allowed to sit in the knee for 3 minutes and then it was irrigated out with saline. The patella was tracking with a no-thumbs technique. A complete synovectomy was performed around the periphery of the patella. A lateral facetectomy was also performed. The capsule was then reapproximated with a No. 1 Vicryl at multiple locations. The capsule was finally closed with a No. 2 Stratafix, barbed suture. Deep tissues were then reapproximated with 0 Vicryl and 2-0 Vicryl. The skin was closed with a running 3-0 Monocryl in a subcuticular fashion. This was reinforced with skin glue. A Mepilex silver dressing was applied along with a [id number] CONSTANTINO wrap. A CryoCuff was applied. Yasmin was transferred to the hospital bed without difficulty an suffering no apparent complication. She has a good prognosis. Physical therapy will start today and without restrictions, weight-bearing as tolerated. Aspirin 81mg BID will be used for DVT prophylaxis. Date of Procedure: 03/22/25
[2025-03-22] MEDS: ceFAZolin 2 GM/50 ML BAG IVPB (09:15)
[2025-03-22] MEDS: TRANEXAMIC ACID/SOD. CHL. 1,000 MG/100 ML BAG 600 MG IVPB (09:22)
--- NOTE | 2025-03-22 11:44 | W.ANESPOSTOP ---
Postoperative Evaluation Date, Time and Location Date Performed: 03/22/25 Time Performed: 11:44 Patient Location: Day Surgery Unit Vital Signs Most Recent Imported Vital Signs: Most Recent Vital Signs Temp Pulse Resp BP Pulse Ox 36.3 C L 78 19 132/78 98 03/22/25 11:29 03/22/25 11:29 03/22/25 11:29 03/22/25 11:29 03/22/25 11:29 Pain Score Most Recent Pain Score: Most Recent Pain Score Pain Level 4 03/22/25 11:29 Assessment Mental Status: Awake (Alert & Oriented to Patient Baseline) Airway and Respiratory Function: Patent airway with normal (patient baseline) respiratory exam Cardiovascular Function: Hemodynamically Stable Hydration Status: Adequately Hydrated Nausea & Vomiting: No Nausea or Vomiting Pain: Pain is tolerable per patient Peripheral Nerve Block: Regional nerve block not resolved at time of post operative discharge Postoperative Comments:: Discussed left arm found hanging at end of case. CMS intact at this time, no complaint apart from soreness at surgical site. All questions answered.
[2025-03-22] MEDS: Tranexamic Acid 650 MG TAB 1300 MG PO (11:50)
[2025-03-22] MEDS: oxyCODONE 5 MG TAB PO (11:50)
--- NOTE | 2025-03-22 14:49 | IN_ITS ---
PT Notes Visit Reasons: Left knee DJD Physical Therapy Day Surgery Initial Evaluation Date: 03/22/2025 Referring Doctor: Annetta Hernandez NP/Dr. Toribio PT Orders: PT CONSULT: Status post Ortho surgery Precautions: WBAT left LE Patient Profile/Admitting Diagnosis: Patient is a 80-year-old female presenting status post elective left TKA under general anesthesia by Dr. Toribio on 03/22/2025. Postop uncomplicated PMHX: History of total right knee replacement (Acute 09/14/24) Osteoarthritis of knees, bilateral (Acute) Villous adenoma of colon (Acute) Hyperlipemia (Acute) Glaucoma (Chronic) Medical History Kidney stones History of gastric polyp History of colonic polyps Eczema Surgical History History of surgical procedure on eye proper using laser left eye for glaucomaHistory of right hemicolectomy History of cataract surgery BilateralHistory of carpal tunnel release BilateralHistory of esophagogastroduodenoscopy (EGD) History of colonoscopy Social History/Home Situation: Pt resides in mobile home with ramp to enter. Pt independent with ADL, cooking, and ambulation. Her drives. Equipment Owned/DME: [employer] Subjective: Patient reports this knee seems more painful than her first 1 Objective: [] General Observation: Female semireclined on stretcher Cryo/Cuff to left knee Mental Status: Alert and oriented x 4, cooperative, able to follow instructions, agreeable to participate in eval Pain: Left knee 3/10 after pain meds ROM: [] Right Upper Extremity: WFL Left Upper Extremity: WFL Right Lower Extremity: WFL Left Lower Extremity: hip and ankle within normal limits knee 0 to 92 degrees Strength: [] Right Upper Extremity: [] 5/5 Left Upper Extremity: 5/5 Right Lower Extremity: Grossly 4/5 Left Lower Extremity: Hip flexion: 3 -/5; hip abduction: 2/5; hip extension: 3 - /5; knee extension: 3/5; knee flexion: 2+/5 ankle DF: 3/5 ; ankle PF: 3/5; patient demonstrates strong quad set and able to perform shortened range SLR w ithout lag Sensation: Intact Bed Mobility/Transfers: [] Supine to sit supervision Sit to stand SBA Stand to sit SBA Bed to chair SBA with FWW Gait: Ambulated with FWW 150 feet SBA demonstrating reduced step length, slight antalgic left lower extremity, reduced knee flexion during swing phase on left Stairs: Two 6 inch steps and three 4 inch steps with rail contact-guard assist step to pattern cues for sequencing Balance: [] Static Sitting: Normal Dynamic Sitting: Good Static Standing: Good with FWW Dynamic Standing: Good- with FWW Special Tests: [] Mobility Limitations Standardized Measure [] [facility] AM-PAC 6 clicks Basic Mobility Inpatient Short Form: [] Raw Score: [23 CMS Score: 11.20% Informed Consent/Education: Patient instructed in purpose of PT consult. Treatment: 97620 packet containing TKA exercise protocol has been given to patient. Education and training on initial set of exercises that can be done at home have been completed with patient. Transfer training various surfaces including chair bed and toilet with FWW SBA. Simulated car transfer with contact-guard assist family able to provide assistance Assessment: Patient is a 80-year-old female who presents with clinical signs and symptoms consistent with current/admitting diagnoses that have resulted to mobility limitations, gait instability, generalized weakness, and impairment of motor control as demonstrated by the following impairment level findings: 1. Decreased strength to left knee major muscle groups 2. Impaired standing balance 3. Limitation of joint range of motion in left knee 4. Pain left knee 5. Impaired functional activity tolerance and standing Impairments are contributing to the following functional limitations: 1. Inability to safely ambulate without assistive device 2. Increase completion time for mobility ADL performance 3. Increased fall risk 4. difficulty performing stairs without assistance Patient is assessed as a low complexity based on the following: History: 80-year-old female with impairment level findings, functional limitations, and past medical history as indicated above Examination: Demonstrable impairment in strength, balance, and mobility level with underlying impairments and functional limitations as documented above Presentation: Stable Decision Making: Low Goals: N/A. PT evaluation and 1-2 treatment sessions only for functional mobility training using recommended AD and for HEP instruction. Plan of Care/Treatment Plan: N/A. PT evaluation and 1-2 treatment session only for functional mobility training using recommended AD and for HEP instruction. DISCHARGE RECOMMENDATIONS: Home with HEP and outpatient PT as scheduled TREATMENT CODE/TIME: [id number] Thank you for the opportunity to participate in the care of this patient. Elvia Bingham PT [facility]
== END 2025-03-22 13:35 | disposition home or self-care (01) ==
LOC: SUR 07:10
PROVIDERS: PCP Family Medicine; Visit Provider Student in an Organized Health Care Education/Training Program
PROC: (CPT 27447; principal; 2025-03-22 09:30)
DX: M17.12 Unilateral primary osteoarthritis, left knee (principal); K21.9 Gastro-esophageal reflux disease without esophagitis; G89.18 Other acute postprocedural pain
CPT/HCPCS: 27447; 64447; 64450; 97161; 97530; C1776; J0665; J0666; J0690; J1100; J2401; J2405; J2704; J3010

== ENCOUNTER 2025-04-04 12:18 | Outpatient (CLI) | payer MEDICARE, OTHER, SELFPAY ==
--- NOTE | 2025-04-04 10:15 | DI.RAD_ITS ---
Exam(s) XR KNEE LT 1V XR STANDING ALIGNMENT EXAM: XR STANDING ALIGNMENT and XR knee LT 1 V CLINICAL HISTORY: 1ST POST OP L TKA. TECHNIQUE: 2D digital imaging was performed. Five images were obtained. COMPARISON: CR XR KNEE RT 1V from 09/27/2024 CR XR STANDING ALIGNMENT from 09/27/2024 FINDINGS: BONES: There are degenerative changes seen in the right hip with joint space narrowing and femoral head osteophyte present. The patient has old right knee arthroplasty is unchanged. Since the prior examination, the patient has undergone a left total knee arthroplasty. There are no suspicious lucencies around the hardware to suggest loosening. The ankles are well maintained.There is no significant leg length discrepancy. SOFT TISSUE: Normal. IMPRESSION: Unremarkable left total knee arthroplasty. DATA REPOSITORY: RADIATION DOSE DELIVERED:
== END 2025-04-04 12:19 | disposition home or self-care (01) ==
LOC: DIORS 12:18
PROVIDERS: PCP Family Medicine; Referring Provider Family Medicine; Visit Provider Student in an Organized Health Care Education/Training Program
DX: Z47.1 Aftercare following joint replacement surgery (principal); Z96.652 Presence of left artificial knee joint
CPT/HCPCS: 99024; 73560; 77073

== ENCOUNTER → 2025-05-09 13:33 | Outpatient (BNVA) | payer MEDICARE, OTHER, SELFPAY | PROVIDERS: PCP Family Medicine; Referring Provider Family Medicine; Visit Provider Student in an Organized Health Care Education/Training Program | DX: Z47.1 Aftercare following joint replacement surgery (principal); Z96.652 Presence of left artificial knee joint | CPT/HCPCS: 99024 ==